=== PATIENT | female | born 1980 | race Caucasian/White ===

== ENCOUNTER 2016-07-11 10:45 | Outpatient (CLI) | payer BC ==
[~2016-07-11] VITALS: Ht 170.2 cm; Wt 74.5 kg
[~2016-07-11 10:45] MED LIST: MOTRIN 600600 MG/TAB PO; PERCOCET 325 MG1 TA2 PO; PRENATAL1 TA1 PO
[2016-07-11 11:02] VITALS: BP 119/71; PULSE 103; TEMP 98.2
[2016-07-11 12:01] LABS: PH 6 (5-8); URINE APPEARANCE Cloudy; URINE BACTERIA Rare /hpf; URINE BILIRUBIN Negative (NEGATIVE); URINE BLOOD 3+ (NEGATIVE); URINE COLOR Red; URINE GLUCOSE Negative (NEGATIVE); URINE KETONE Negative (NEGATIVE); URINE RBC >50 /hpf; URINE UROBILINOGEN Negative (NEGATIVE)
[2016-07-11 12:30] VITALS: BP 106/56; PULSE 82
[2016-07-11 14:40] VITALS: BP 112/64; PULSE 91; TEMP 98.7
== END 2016-07-11 15:00 | disposition home or self-care (01) ==
LOC: LDRO 10:45
PROVIDERS: Student in an Organized Health Care Education/Training Program
DX: O26.93 Pregnancy related conditions, unspecified, third trimester (principal); R31.9 Hematuria, unspecified; Z3A.28 28 weeks gestation of pregnancy
CPT/HCPCS: J0696; J7120